=== PATIENT | female | born 1975 | race Hispanic/Latino ===

== ENCOUNTER → 2018-12-23 | Outpatient (CLI) | payer BC ==
--- NOTE | 2018-12-23 11:49 | Diagnostic Imaging Report ---
Radiographs of the right heel. Radiographs of the left heel. HISTORY: Pain COMPARISON: None available. FINDINGS: Bones: No acute displaced fracture. Osseous alignment is within normal limits. Joints: Scattered degenerative change. No osseous erosion. Small inferior calcaneal bone spurs. Soft tissues: The soft tissues appear unremarkable. IMPRESSION: Scattered degenerative change. No osseous erosion. Small inferior calcaneal bone spurs. Signed by: Dr. Gustavo Rg M.D. on 12/23/2018 11:46 AM
== END ==
LOC: RAD 09:53
PROVIDERS: ATTEND Family Medicine
DX: M79.672 Pain in left foot (principal); M79.671 Pain in right foot